=== PATIENT | female | born 2000 | race Caucasian/White ===

== ENCOUNTER → 2023-01-16 | Outpatient (CLI) | payer OTHER ==
[~2023-01-16] MED LIST: BARIUM for suspension 96% w/w (Vanilla Silq Medium Density) PO ONE; BARIUM for suspension 98% w/w (Vanilla Silq High Density) PO ONE
--- NOTE | 2023-01-16 13:15 | Diagnostic Imaging Report ---
INDICATION: Preoperative evaluation prior to gastric sleeve procedure. Help Desk Consultant radiograph of the abdomen is unremarkable. Patient ingested liquid barium under fluoroscopic observation. Swallowing motion is unremarkable. Esophagus is of normal caliber with normal primary peristalsis. Note is made of small sliding-type hiatal hernia without significant gastroesophageal reflux documented on the exam. Hernia is somewhat exacerbated by Valsalva. Stomach and duodenum are morphologically normal in appearance. There is no evidence of mass, stricture or significant mucosal irregularity. Ligament of Treitz is in a normal location. IMPRESSION: Unremarkable upper GI series apart from small sliding-type hiatal hernia which increases slightly with Valsalva maneuver. Dictated by: Dictated on workstation # [id number]
== END ==
LOC: RAD 09:45
PROVIDERS: ATTEND Surgery
DX: Z01.818 Encounter for other preprocedural examination (principal); K44.9 Diaphragmatic hernia without obstruction or gangrene
CPT/HCPCS: 74246

== ENCOUNTER 2023-06-15 05:28 | Outpatient (CLI) | payer OTHER ==
[~2023-06-15] VITALS: Ht 167.7 cm; Wt 102.3 kg
== END 2023-06-15 10:59 | disposition home or self-care (01) ==
LOC: PREOP 05:28
PROVIDERS: ATTEND Surgery
DX: Z01.818 Encounter for other preprocedural examination (principal)

== ENCOUNTER 2023-06-22 11:05 | Day surgery (SDC) | payer OTHER ==
[2023-06-22] VITALS (8 sets, daily range): BP systolic 112–132; BP diastolic 69–92
[~2023-06-22] VITALS: Ht 167.7 cm; Wt 102.3 kg
[2023-06-22] MEDS ORDERED: LIDOCAINE 2% w/EPI 1:100,000 20 ML VIAL ONE (11:29)
[2023-06-22] MEDS ORDERED: ceFAZolin INJECTION 2,000 MG in NS (IVPB) 50 ML 50 ML IV ONE (11:30)
--- NOTE | 2023-06-22 11:44 | Progress Note-Pre Operative ---
Pre-Operative Progress Note Date of Available H&P: Jun 22, 2023 Date H&P Reviewed: Jun 22, 2023 Time H&P Reviewed: 11:40 History & Physical: No changes noted Pre-Operative Diagnosis: morbid obesity, GERD ALCIRA GRANDE MD Jun 22, 2023 11:44
[2023-06-22] MEDS ORDERED: ONDANSETRON 4 MG ORAL DISSOLVE TABLET PO PRN (11:45)
[2023-06-22] MEDS ORDERED: NALOXONE 0.4 MG/ML 1 ML VIAL IV PRN (11:45)
[2023-06-22] MEDS ORDERED: ONDANSETRON INJECTION 4 MG/2 ML (SDV) IV PRN (11:45)
[2023-06-22] MEDS ORDERED: METOCLOPRAMIDE INJ 10 MG/2 ML IV PRN (11:45)
[2023-06-22] MEDS ORDERED: diphenhydrAMINE INJ 50 MG/ML VIAL IVP PRN (11:45)
[2023-06-22] MEDS ORDERED: NS IV 1000 ML 1,000 ML IV SCH (11:45)
[2023-06-22] MEDS ORDERED: diphenhydrAMINE INJ 50 MG/ML VIAL IV PRN (11:45)
--- NOTE | 2023-06-22 11:50 | Discharge Inst-Surgical ---
D/C Lap Instructions-HARJINDER Follow Up Appt in 2 weeks Activity as tolerated No driving for 24 hours No driving while on pain medications Incentive Spirometry use every 2 hours while awake Phase 1 clear liquid diet next 2 weeks. Symptoms to Report: Fever over 101 degree F, Nausea/Vomiting Infection Signs and Symptoms to report: Increased redness, Foul odor of wound, Increased drainage Bathing instructions: May shower Operative Area Clean/Dry; Keep incision clean/dry If any problems/questions: Contact your physician or go to Emergency Room ALCIRA GRANDE MD Jun 22, 2023 11:50
[2023-06-22] MEDS: ONDANSETRON INJECTION 4 MG/2 ML (SDV) IVP SCH ×3 (12:00→23:59)
[2023-06-22] MEDS: METOCLOPRAMIDE INJ 10 MG/2 ML IVP SCH ×3 (12:00→23:59)
[2023-06-22] MEDS: LACTATED RINGERS 1,000 ML 1,000 ML IV PRN ×2 (12:20→13:55)
[2023-06-22] MEDS ORDERED: fentaNYL INJECTION 100 MCG/2 ML VIAL ONE (13:17)
[2023-06-22] MEDS ORDERED: MIDAZOLAM INJ 2 MG/2 ML VIAL ONE (13:17)
[2023-06-22] MEDS ORDERED: RT-ALBUTEROL SULF 2.5 MG/3 ML PRE-MIX VIAL INH SCH (14:00)
[2023-06-22] MEDS ORDERED: LIDOCAINE 2% w/EPI 1:100,000 20 ML VIAL INJ ONE (14:09)
[2023-06-22] MEDS ORDERED: ROCURONIUM 50 MG/5 ML VIAL IV ONE ×2 (14:26→14:50)
[2023-06-22] MEDS ORDERED: proPOfol INJECTION 200 MG/20 ML VIAL IV ONE (14:26)
[2023-06-22] MEDS ORDERED: dexAMETHasone INJ 10 MG/ML 1 ML VIAL ONE (14:26)
[2023-06-22] MEDS ORDERED: ONDANSETRON INJECTION 4 MG/2 ML (SDV) ONE (14:26)
[2023-06-22] MEDS ORDERED: LIDOCAINE PF 2% 5 ML VIAL ONE (14:26)
[2023-06-22] MEDS ORDERED: SEVOFLURANE (ULTANE) 15 ML INHAL SOLN ONE (14:39)
[2023-06-22] MEDS ORDERED: NEOSTIGMINE 1 MG/1ML 10 ML VIAL ONE (14:55)
[2023-06-22] MEDS ORDERED: GLYCOPYRROLATE INJ 0.2 MG/ML 2 ML VIAL ONE (14:55)
--- NOTE | 2023-06-22 15:15 | Progress Note-Post Operative ---
Post-Operative Progess Note Surgeon (s)/Crook Operator (s) Surgeon ALCIRA GRANDE MD Crook Operator: none Pre-Operative Diagnosis morbid obesity, GERD Post-Operative Diagnosis same Procedure & Operative Findings Date of Procedure 06/22/23 Procedure Performed/Findings laparoscopic gastric sleeve resection. Anesthesia Type get Estimated Blood Loss Estimated blood loss (mL): minimal Specimens/Packing Specimens Removed stomach ALCIRA GRANDE MD Jun 22, 2023 15:15
[2023-06-22] MEDS ORDERED: MEPERIDINE INJ 50 MG/ML VIAL IVP ONE (15:30)
[2023-06-22] MEDS ORDERED: HYDROmorphone INJECTION 2 MG/ML VIAL IV ONE (15:30)
[2023-06-22] MEDS ORDERED: PROMETHAZINE INJ 25 MG/ML VIAL IVP ONE (15:30)
[2023-06-22] MEDS ORDERED: morphine INJ 10 MG/ML 1ML (SYR OR VIAL) IVP ONE (15:30)
[2023-06-22] MEDS ORDERED: ONDANSETRON INJECTION 4 MG/2 ML (SDV) IVP PRN (15:30)
[2023-06-22] MEDS ORDERED: morphine INJ 10 MG/ML 1ML (SYR OR VIAL) ONE (15:39)
[2023-06-22] MEDS: metroNIDAZOLE 500MG/100ML IVPB 100 ML IV SCH (16:41)
[2023-06-22] MEDS: 1/2 NS + KCL 20 MEQ/L 1,000 ML 1,000 ML IV SCH ×2 (16:42→17:58)
[2023-06-22] MEDS: fentaNYL INJECTION 100 MCG/2 ML VIAL IVP PRN ×3 (16:42→23:59)
[2023-06-22] MEDS: oxyCODONE 5 MG/5 ML ORAL SOLN 5 ML UDC PO PRN (17:10)
[2023-06-22] MEDS: ONDANSETRON INJECTION 4 MG/2 ML (SDV) IVP PRN (18:33)
[2023-06-22] MEDS: ceFAZolin INJECTION 2,000 MG in NS (IVPB) 50 ML 50 ML IV SCH (18:35)
[2023-06-22] MEDS: ENOXAPARIN 30 MG/0.3 ML SYRINGE SC SCH (20:39)
--- NOTE | 2023-06-22 21:13 | OPERATIVE REPORT ---
DATE OF SERVICE: 06/22/2023 ATTENDING PRIMARY CARE PHYSICIAN: Daniel Lyon APRN PREOPERATIVE DIAGNOSES: Morbid obesity, gastroesophageal reflux disease. POSTOPERATIVE DIAGNOSES: Morbid obesity, gastroesophageal reflux disease. PROCEDURE: Laparoscopic gastric sleeve resection. SURGEON: Alcira Grande MD ANESTHESIA: General endotracheal. ESTIMATED BLOOD LOSS: Minimal. FINDINGS: No hepatomegaly. Normal-appearing gallbladder. No hiatal hernia. DISPOSITION: The patient tolerated the procedure well. INDICATIONS: The patient is a 23-year-old female with a history of morbid obesity, who is in our surgical weight loss program for the gastric sleeve resection and does meet medical criteria for bariatric surgery. She has struggled with her weight since in her late teen years. She has undergone physician monitored dieting for the past 6 months. She has also tried a number of diet and exercise attempts with no success. She has tried diet programs including low calorie, low carbohydrate diet as well as Atkins and ketogenic diet with minimal success. She has also tried exercise regimens including walking and stationary bike for 60-minute intervals and would maybe lose some amount of weight; however, never anything significant. Her medical comorbidities related to obesity include gastroesophageal reflux disease. DESCRIPTION OF PROCEDURE: The patient was brought to the operating room, laid supine on the table. After adequate IV pain and sedative medications and general endotracheal intubation, the abdomen was prepped and draped in standard surgical fashion. A 0.5% Marcaine with epinephrine was used to anesthetize the overlying skin in the left upper abdominal quadrant and a transverse skin incision made using a #15 blade. An 0 silk suture was applied to the medial aspect of the incision for retraction and a Veress needle inserted with a low opening pressure of 0 mmHg and the abdomen was then insufflated to 15 mmHg pressure. The Veress needle removed and a 5 mm trocar placed followed by a 5 mm 45-degree angle laparoscope visualized the peritoneal cavity. A 4-quadrant abdominal exploration was performed. There was no hepatomegaly, no hiatal hernia as well as a normal-appearing gallbladder. Under direct visualization, we then proceeded to place a mid left to midline 10 mm port after the skin and peritoneal lining were anesthetized using 0.5% Marcaine with epinephrine and a transverse skin incision made using a #15 blade. In a similar manner, a midabdominal right of midline 15 mm port was placed followed by a right upper abdominal quadrant 5 mm port. The epigastric region was then anesthetized and a transverse skin incision made using 11 blade. A tract was then created through the abdominal wall layers using a trocar to a 5 mm port and through this opening, a medium-sized Vic liver retractor was placed and the left lobe of the liver retracted anteriorly and superiorly. The patient was then placed in steep reverse Trendelenburg position. We then proceeded to measure 6 cm from the pylorus along the greater curvature and marked this area with a marking pen. We then proceeded to dissect the gastrocolic ligament next to the stomach using the Sonicision entering the lesser sac. We then proceeded with inferior dissection with a Sonicision until we were approximately 2 cm below our marking with visualization of good hemostasis. We then proceeded cephalad taking down the short gastric vessels as well as the angle of His, connective tissue fibers using the Sonicision. We proceeded inferior until the left jennifer of the diaphragm was identified. Good hemostasis was observed. A 36-Bulgarian Bisigi bougie was then placed into the stomach and directed and guided into the pylorus. The ViSiGi was then placed on suction. Using this as our staple line, we first proceeded with using a 5 mm poly glycolic black load 2 cm below are marking. We then proceeded with a two 60 mm black loads followed by two 60 mm purple loads leaving 2 cm next to the gastroesophageal junction and completing our gastric sleeve resection. The staple line corners were then clipped with 5 mm clips. Fibrin glue was then placed onto the staple line and omentum placed onto the staple line. A leak test through the Visisigi was performed to 35mm of air pressure with no leaks identified while the gastric pouch was immersed in saline. The saline was then suctioned out. The stomach was then removed through the 15 mm port site. The fascia and peritoneum to the 10 and 15 mm port sites were then closed under direct visualization using a Rigoberto-Rubén device and 0 Vicryl suture. The abdomen was then desufflated and remaining ports removed. All skin incisions were closed using 4-0 Monocryl running subcuticular sutures. Wounds were then cleaned and covered with Dermabond. The abdomen was desufflated and remaining ports removed. All skin incisions were closed using 4-0 Monocryl running subcuticular sutures. Wounds were then cleaned and covered with Dermabond. The patient tolerated the procedure well. We will admit her 23-hour observation. We will proceed with DVT prophylaxis with early ambulation, calf SCDs as well as Lovenox injections. She may have only ice chips tonight and tomorrow morning, we will proceed with a phase 1 clear liquid diet initially 30 mL every 30 minutes and then to 60 mL every 30 minutes and when she is tolerating this amounts of liquids, has adequate pain control with oral pain medications, ambulating well, we will discharge her home where she will be instructed to do no heavy lifting or exertion and continue the phase 1 clear liquid diet for the next 2 weeks. Job ID: [id number] DocumentID: [id number] Dictated Date: 06/22/2023 15:11:58 Home Health Caregiver Date: 06/22/2023 21:10:00 Dictated By: ALCIRA GRANDE MD MTDD
[2023-06-23 00:56] VITALS: BP 118/69
[2023-06-23] MEDS: metroNIDAZOLE 500MG/100ML IVPB 100 ML IV SCH ×2 (01:21→08:15)
[2023-06-23] MEDS: 1/2 NS + KCL 20 MEQ/L 1,000 ML 1,000 ML IV SCH ×3 (01:21→13:43)
[2023-06-23] MEDS: oxyCODONE 5 MG/5 ML ORAL SOLN 5 ML UDC PO PRN ×4 (01:27→14:46)
[2023-06-23] MEDS: ONDANSETRON INJECTION 4 MG/2 ML (SDV) IVP PRN (01:27)
[2023-06-23] MEDS: ceFAZolin INJECTION 2,000 MG in NS (IVPB) 50 ML 50 ML IV SCH ×2 (02:19→11:37)
[2023-06-23 04:35] VITALS: BP 125/70
[2023-06-23] MEDS: ONDANSETRON INJECTION 4 MG/2 ML (SDV) IVP SCH ×2 (05:57→08:37)
[2023-06-23] MEDS: METOCLOPRAMIDE INJ 10 MG/2 ML IVP SCH (05:57)
[2023-06-23] MEDS: fentaNYL INJECTION 100 MCG/2 ML VIAL IVP PRN ×4 (06:02→16:14)
[2023-06-23 06:17] LABS: HEMATOCRIT 36 % (35-52); HEMOGLOBIN 12.1 g/dL (11.5-16.0); MEAN CORPUSCULAR HEMOGLOBIN 29 pg (25-34); MEAN CORPUSCULAR HGB CONC 33 g/dL (32-36); MEAN CORPUSCULAR VOLUME 86 fL (80-99); MEAN PLATELET VOLUME 9.7 fL (9.0-12.2); PLATELET COUNT 371 10^3/uL (130-400); WHITE BLOOD COUNT 15.6 10^3/uL (4.3-11.0)
[2023-06-23 07:30] VITALS: BP 122/71
[2023-06-23] MEDS: ENOXAPARIN 30 MG/0.3 ML SYRINGE SC SCH (08:16)
[2023-06-23] MEDS ORDERED: PANTOPRAZOLE INJECTION 40 MG VIAL IV SCH (09:00)
[2023-06-23] MEDS ORDERED: SENNA W/DOCUSATE TABLET PO SCH (09:00)
--- NOTE | 2023-06-23 10:02 | Anesthesia-General Post-Op ---
General Patient Condition Mental Status/LOC: Same as Preop Cardiovascular: Satisfactory Nausea/Vomiting: Absent Respiratory: Satisfactory Pain: Controlled Complications: Absent Post Op Complications Complications None Follow Up Care/Instructions Patient Instructions None needed. Anesthesia/Patient Condition Patient Condition Patient is sitting up in chair. She does C/O nausea which is controlled with medication and common after this procedure. Her pain is controlled and she is doing well, stable vital signs, no apparent adverse anesthesia problems. No complications reported per nursing. MITESH EUGENE DO Jun 23, 2023 10:02
[2023-06-23 11:15] VITALS: BP 130/66
[2023-06-23] MEDS ORDERED: ONDANSETRON 4 MG ORAL DISSOLVE TABLET PO PRN (11:15)
[2023-06-23] MEDS ORDERED: ONDANSETRON INJECTION 4 MG/2 ML (SDV) IVP PRN ×2 (11:45→13:15)
[2023-06-23] MEDS ORDERED: METOCLOPRAMIDE INJ 10 MG/2 ML IVP PRN (11:45)
--- NOTE | 2023-06-23 12:03 | Progress Note ---
Subjective Date Seen by a Provider: Jun 23, 2023 Time Seen by a Provider: 11:00 Subjective/Events-last exam doing well. still having some nausea however no vomiting. ambulating well and pain controlled. no fever/chills. Objective Exam Vital Signs Date Time Temp Pulse Resp B/P (MAP) Pulse Ox O2 Delivery O2 Flow Rate FiO2 06/23/23 11:15 36.2 89 24 130/66 (87) 98 Room Air 06/23/23 08:30 97 Room Air 06/23/23 07:30 37.1 88 18 122/71 (88) 97 Room Air 06/23/23 04:35 37.0 90 20 125/70 (88) 97 Room Air 06/23/23 02:19 36.8 06/23/23 00:56 36.8 81 20 118/69 (85) 98 Room Air 06/22/23 21:07 95 Room Air 0.00 21 06/22/23 20:48 97 Room Air 06/22/23 20:44 37.0 74 20 129/77 (94) 98 Room Air 06/22/23 17:32 96 Room Air 06/22/23 16:05 Room Air 06/22/23 16:00 36.4 23 114/69 (84) 95 Room Air 06/22/23 15:50 Room Air 06/22/23 15:50 19 112/71 (85) 95 Room Air 06/22/23 15:40 22 125/81 (96) 98 OxyMask 10.00 06/22/23 15:30 OxyMask 10.00 06/22/23 15:30 25 126/79 (95) 99 OxyMask 10.00 06/22/23 15:21 24 130/92 (105) 98 OxyMask 10.00 06/22/23 15:16 36.2 22 132/89 (103) 97 OxyMask 10.00 06/22/23 15:16 OxyMask 10.00 I & O 06/23/23 07:00 Intake Total 1140 ml Output Total 3060 ml Balance -1920 ml Capillary Refill : General Appearance: No Apparent Distress HEENT: PERRL/EOMI Neck: Full Range of Motion Respiratory: Chest Non Tender, Lungs Clear, Normal Breath Sounds Cardiovascular: Regular Rate, Rhythm Gastrointestinal: normal bowel sounds, tenderness, other (incisions clean/dry) Extremity: Normal Capillary Refill Neurologic/Psychiatric: Alert, Oriented x3 Skin: Normal Color Lymphatic: No Adenopathy Results Lab Laboratory Tests 06/22/23 15:21: Glucometer 148H 06/23/23 05:17: White Blood Count 15.6H, Red Blood Count 4.21, Hemoglobin 12.1, Hematocrit 36, Mean Corpuscular Volume 86, Mean Corpuscular Hemoglobin 29, Mean Corpuscular Hemoglobin Concent 33, Red Cell Distribution Width 13.0, Platelet Count 371, Mean Platelet Volume 9.7 Microbiology 06/22/23 MRSA Screen - Final, Complete MRSA not isolated Assessment/Plan Assessment/Plan Assess & Plan/Chief Complaint s/p laparoscopic gastric sleeve resection. continue PO pain meds and phase 1 clear liquid diet. once tolerating clears then home. ALCIRA GRANDE MD Jun 23, 2023 12:03
[2023-06-23 15:47] VITALS: BP 124/60
[2023-06-23 16:26] VITALS: BP 124/60
== END 2023-06-23 16:24 | disposition home or self-care (01) ==
LOC: SDC 11:05 → 4TH 16:06 → SDC 06-23 16:24
PROVIDERS: ATTEND Surgery
DX: E66.01 Morbid (severe) obesity due to excess calories (principal); K21.9 Gastro-esophageal reflux disease without esophagitis; Z68.36 Body mass index [BMI] 36.0-36.9, adult
CPT/HCPCS: 36415; 82947; 84703; 85027; 87081; 88307; 94664